=== PATIENT | male | born 1950 | race Caucasian/White ===

== ENCOUNTER 2017-06-19 05:05 | Inpatient (IN) | payer OTHER ==
[2017-06-13 15:33] VITALS: BMI 33.0
--- NOTE | 2017-06-13 16:19 | PAT Medication Instructions ---
Service Date Jun 13, 2017. Current Home Medication List Albuterol Hfa (Ventolin Hfa), 2 PUFFS INH QID PRN for RN Aspirin (Aspirin Ec), 81 MG PO QAM Carvedilol (Carvedilol), 12.5 MG PO BID Clopidogrel (Plavix), 75 MG PO QAM Fluticasone Propionate (Nasal) (Flonase Allergy Relief), 2 SPRAYS INTNAS PRN Insulin Aspart (Novolog Flexpen), 10 UNITS SQ AM/NOON Insulin Aspart (Novolog Flexpen), 14 UNITS INJ HS Insulin Detemir (Levemir), 44 UNITS INJ BID Lisinopril (Prinivil), 20 MG PO QAM Melatonin (Kp Melatonin), 1 TAB PO HS PRN for PRN Metformin Hcl (Glucophage Ext Rel), 1,000 MG PO BID Multiple Vitamins W/ Minerals (Centrum Silver Adult 50+), 1 TAB PO Q2D Rosuvastatin Calcium (Crestor), 5 MG PO HS Sertraline (Zoloft), 100 MG PO QAM Sertraline (Zoloft), 50 MG PO QPM [Albuterol Neb], 1 DOSE INH PRN Medication Instructions For Your Scheduled Surgery - Last dose 06/12/17: Clopidogrel (Plavix), 75 MG PO QAM - Hold the following medications 48 hours prior to surgery: Metformin Hcl (Glucophage Ext Rel), 1,000 MG PO BID - Hold the following medications the morning of surgery: Insulin Aspart (Novolog Flexpen), 10 UNITS SQ AM/NOON Lisinopril (Prinivil), 20 MG PO QAM Multiple Vitamins W/ Minerals (Centrum Silver Adult 50+), 1 TAB PO Q2D - Take the following medications the morning of surgery with a sip of water OTHERWISE NOTHING TO EAT OR DRINK AFTER MIDNIGHT: Aspirin (Aspirin Ec), 81 MG PO QAM Albuterol Hfa (Ventolin Hfa), 2 PUFFS INH QID PRN (use if needed; BRING TO HOSPITAL) Carvedilol (Carvedilol), 12.5 MG PO BID [Albuterol Neb], 1 DOSE INH PRN Sertraline (Zoloft), 100 MG PO QAM Fluticasone Propionate (Nasal) (Flonase Allergy Relief), 2 SPRAYS INTNAS PRN - For Insulin Dependent Diabetic patients: Test blood sugar A.M. of surgery. - If Blood Sugar GREATER THAN 150, take half of your regular dose of: Insulin Detemir (Levemir) - If Blood Sugar LESS THAN 150, do not take any: Insulin Detemir (Levemir ) - Take the following medications as scheduled the night before surgery: Insulin Detemir (Levemir), 44 UNITS INJ BID Insulin Aspart (Novolog Flexpen), 14 UNITS INJ HS Albuterol Hfa (Ventolin Hfa), 2 PUFFS INH QID PRN Carvedilol (Carvedilol), 12.5 MG PO BID [Albuterol Neb], 1 DOSE INH PRN Melatonin (Kp Melatonin), 1 TAB PO HS PRN for PRN Rosuvastatin Calcium (Crestor), 5 MG PO HS Sertraline (Zoloft), 50 MG PO QPM If you have any questions please call us at [phone] or [phone] or [phone]
--- NOTE | 2017-06-13 16:46 | DIAGNOSTIC IMAGING REPORT ---
CHEST 2 VIEWS ROUTINE HISTORY: 66 years-old Male PAT preoperative exam. No acute chest complaints COMPARISON: Chest radiograph 12/16/2013 TECHNIQUE: PA and lateral views of the chest FINDINGS: Cardiomediastinal and hilar silhouettes are within normal limits. Atherosclerosis of the aorta. No pneumothorax, pleural effusion, focal airspace consolidation or overt pulmonary edema. Minimal bibasilar atelectasis. Bones of the chest appear grossly intact. There are degenerative changes noted within the shoulders bilaterally and to lesser degree within the spine. Nodular opacity projecting over the lateral right lung base suggests nipple shadow. IMPRESSION: No acute cardiopulmonary process. The above report was generated using voice recognition software. It may contain grammatical, syntax or spelling errors. Electronically signed by: Demetrius Appiah M.D. 06/13/2017 4:45 PM Dictated Date/Time: 06/13/2017 4:44 PM
[2017-06-13 16:48] LABS: URINE APPEARANCE CLEAR (CLEAR); URINE BILIRUBIN NEG (NEG); URINE COLOR YELLOW; URINE NITRITE NEG (NEG); URINE PH 6.5 (4.5-7.5); URINE SPECIFIC GRAVITY 1.016 (1.000-1.030); UROBILINOGEN NEG (NEG); ZZUR CULT IF INDIC CLEAN CATCH NO
[2017-06-13 16:53] LABS: MANUAL MICROSCOPIC REQUIRED? NO; REVIEW REQ? NO
[2017-06-13 16:56] LABS: PARTIAL THROMBOPLASTIN RATIO 0.9; PROTHROMBIN TIME (PATIENT) 10.3 SECONDS (9.0-12.0)
--- NOTE | 2017-06-18 11:26 | HISTORY & PHYSICAL EXAMINATION ---
DATE OF ADMISSION: 06/19/2017 HISTORY OF PRESENT ILLNESS: The patient presents as a 66-year-old white male, 5 foot 11 inches, 245 pounds presenting for history and physical for surgery in the morning for a right total knee arthroplasty, presents after failing attempts at conservative management including physical therapy, anti-inflammatories, relative rest, activity modification and presents for right total knee arthroplasty. PAST MEDICAL HISTORY: Significant for hypertension, hypercholesterolemia, anxiety; diabetes, currently on insulin. FAMILY HISTORY: Otherwise unremarkable and noncontributory. SOCIAL HISTORY: The patient denies history of smoking, relates to 6 alcoholic drinks per week. No recreational drug use. PAST SURGICAL HISTORY: Significant for hip resurfacing, prostate surgery, foot surgery, and meniscus surgery of right knee. ALLERGIES: TETRACYCLINE, SULFA DRUGS, PENICILLIN. PAST MEDICAL HISTORY: Otherwise unremarkable. See history of present illness for pertinent positives. PHYSICAL EXAMINATION: GENERAL: A very pleasant 66-year-old white male with complaints of severe endstage DJD about his right knee. He has been nonresponsive to conservative therapy including physical therapy, anti-inflammatories, relative rest, activity modification and presents for total knee arthroplasty. HEENT: Otherwise unremarkable, atraumatic, normocephalic. HEART: Regular at 72 beats per minute. No murmurs are noted. LUNGS: Clear without rales, rhonchi, or wheezes noted. ABDOMEN: Soft, nontender, nondistended. Bowel sounds are present in all 4 quadrants. RECTAL: No rectal examination was performed. MUSCULOSKELETAL: Consistent with that of DJD of the right knee medial compartment, grade 3 and 4 chondrosis as verified via previous arthroscopy, patellofemoral arthritis with osteophytes. ASSESSMENT AND PLAN: The patient has failed attempts at conservative management. The patient presents for total knee arthroplasty.
[~2017-06-19] VITALS: Ht 180.3 cm; Wt 109.6 kg
[2017-06-19] VITALS (9 sets, daily range): BP systolic 120–164; BP diastolic 78–91; PULSE 54–69; TEMP 36.1–37; O2SAT 97–99; Ht 180.3 cm; Wt 109.6 kg
[~2017-06-19 05:05] MED LIST: ALBUTEROL NEB INH; ASPI81TA28 PO; CLOP1TAB15 PO; CRG125 PO; FLUT0.15 INTNAS; LISI20TA3 PO; LVMI INJ; MELA1TAB5 PO; METF1TAB53 PO; MULT-845 PO; NVLGI/PEN INJ; NVLGI/PEN SQ; ROSU5TAB PO; SERT-234 PO; SERT50TA PO; VNTHFA/IN INH
[2017-06-19] MEDS ORDERED: BUPIVACAINE LIPOSOME 266 MG, BUPIVACAINE/EPINEPHRINE INJ 50 ML, SODIUM CHLORIDE 0.9% PF... INFIL SCH ×3 (06:00)
[2017-06-19] MEDS ORDERED: GABAPENTIN 300 MG CAP PO SCH (06:00)
[2017-06-19] MEDS ORDERED: DEXAMETHASONE 4 MG TAB PO SCH (06:00)
[2017-06-19] MEDS ORDERED: LACTATED RINGER'S 1000ML IV SCH (06:00)
[2017-06-19] MEDS ORDERED: OXYCODONE HCL 10 MG TABCR (OXYCONTIN) PO SCH (06:00)
[2017-06-19] MEDS ORDERED: ACETAMINOPHEN 500 MG TAB PO SCH (06:00)
[2017-06-19] MEDS ORDERED: CLINDAMYCIN 600 MG/54 ML D5W 54 ML IV SCH (06:00)
[2017-06-19] MEDS ORDERED: LACTATED RINGER'S 1000ML 1,000 ML IV SCH (06:00)
[2017-06-19] MEDS ORDERED: METOCLOPRAMIDE HCL 10 MG TAB PO SCH (06:00)
[2017-06-19] MEDS ORDERED: FAMOTIDINE 20 MG TAB PO SCH (06:00)
[2017-06-19] MEDS ORDERED: LACTATED RINGER'S 1000ML 500 ML IV ONE (06:00)
[2017-06-19] MEDS ORDERED: ROPIVACAINE 5MG/ML 30 ML 150 MG, BUPIVACAINE 0.5% MPF INJ 30 ML, EpINEphrine HCL INJ 0.... INFIL SCH ×8 (06:00)
[2017-06-19] MEDS ORDERED: BUPIVACAINE 0.5 % 5 MG/1 ML PF 10ML VIAL ONE (06:31)
[2017-06-19] MEDS ORDERED: MIDAZOLAM HCL 1 MG/ML 2ML VIAL ONE ×2 (06:43→07:18)
[2017-06-19] MEDS ORDERED: PROPOFOL IV EMULSION 10 MG/ML 20 ML VIAL IV ONE ×2 (06:43→08:49)
[2017-06-19] MEDS ORDERED: LIDOCAINE HCL 2% 2 ML VIAL (20MG/ML) ONE (06:43)
[2017-06-19] MEDS ORDERED: POVIDONE-IODINE OP SOLN 30 ML BTL ONE (06:51)
[2017-06-19] MEDS ORDERED: ORTHO JOINT ANESTHETIC ONE (06:51)
[2017-06-19] MEDS ORDERED: BACITRACIN 50000 UNIT VIAL ONE (06:51)
--- NOTE | 2017-06-19 07:14 | History & Physical Bridge Note ---
H&P Re-Evaluation Bridge Note: I have examined the patient, reviewed the History & Physical and in the interval since the performance of the History & Physical I have noted the following changes of clinical significance: No changes noted
[2017-06-19] MEDS ORDERED: KETAMINE HCL INJ 50 MG/ML 10 ML VIAL ONE (07:33)
--- NOTE | 2017-06-19 08:35 | [facility] Operative Report ---
Operative Report Operative Date Jun 19, 2017. Pre-Operative Diagnosis Degenerative Joint Disease of the right knee medial compartment, grade 3 and 4 chondrosis, patellofemoral arthritis with osteophytes. Post-Operative Diagnosis Severe end-stage tricompartmental degenerative joint disease right knee nonresponsive to conservative therapy Procedure(s) Performed Right Total Knee Arthroplasty utilizing [employer] journey 2 nonlocked total knee arthroplasty size 5 femur 5 tibia 10 Sheila [address] Michael Manzano Gleason Gear Generator Surgeon(s) Mahendra Richardson PA-C Estimated Blood Loss 5mL Findings Severe end-stage tricompartmental degenerative joint disease right knee Nourse wants to conservative therapy subchondral cystic changes sclerosus osteophytes marginal osteophytes bone the bone changes Specimens Permanent: A. Right Knee Bone and Tissue Complication(s) None Disposition Recovery Room / PACU Indications Patient presents with severe end-stage tricompartmental joint disease nonresponsive to conservative therapy for total knee arthroplasty Description of Procedure After proper prepping and draping of the Right lower extremity anterior midline incision was made over the region of the extensor extensor mechanism after meticulous hemostasis was obtained and maintained in subcutaneous tissues a medial parapatellar incision was made The patella was subluxed lateralward the medial lateral gutter were cleaned from any hypertrophic synovitis and scar tissue of the distal femoral block was placed and the distal femoral osteotomy cut was made subsequently the chamfers anterior and posterior osteotomy cuts were made utilizing the 4-in-1 block the tibia was subsequently subluxed anteriorward medial and ateral meniscal remnants were excised in their entirety remnants of the anterior and posterior cruciate ligaments were excised in their entirety excellent exposure of the proximal tibia was obtained the tibial osteotomy guide was placed on the proximal tibial osteotomy cut was made once again the knee was irrigated with copious amounts of sterile saline solution the patella was subsequently everted lateralward thickened scar tissue around the patella was removed the patella was subsequently cut utilizing a freehand technique and was drilled prepared for final preparation and placement of patella socially flexion-extension gaps were checked and the equal and symmetric trials were placed to the appropriate femoral and tibial trials with poly-spacer being placed for equal flexion and extension gaps and full range of motion including extension to 0 and flexion to 140 the trial components after having been taken to recovery range of motion was subsequently removed meticulous hemostasis was obtained and maintained subsequently a knee block injection of joint cocktail including ropivacaine 0.5% 150 mg. Bupivacaine 0.5 % epinephrine 1-200,030 mL's toradol 30 mg dexamethasone 4 mg ketamine 10 mg clonidine 100 micrograms normal saline solution 30 mg was infiltrated into the soft tissues of the posterior knee medial lateral gutters and periosteal synovium special attention was paid to protect neurovascular structures at all times subsequently trial components having been removed the knee was irrigated with sterile saline solution. debris was removed the proximal tibia was subsequently prepared and was made ready for the placement of the tibial component tibial component was also cemented and tamped into position the femoral component was subsequently placed and cemented in the position the patellar component was subsequently cemented in position because hemostasis once again obtained and maintained wound having been thoroughly irrigated with debridement and debridement lavage was performed as well as a medial parapatellar incision closed with #1 Vicryl in interrupted fashion subcutaneous was closed with #2 Vicryl skin was closed with skin clips. PA-C was necessary for prepping and drapping as well as wound closure of deep fascia Sub cutaneous tissue and skin and was necessary for the case. A sterile compressive dressing was placed patient was taken to recovery in stable condition of report dictated by Jose Juan I attest to the content of the Intraoperative Record and any orders documented therein. Any exceptions are noted below. I attest to the content of the Intraoperative Record and any orders documented therein. Any exceptions are noted below.
[2017-06-19] MEDS ORDERED: FENTANYL CITRATE INJ 50 MCG/1 ML 2 ML VIAL IV PRN (08:45)
[2017-06-19] MEDS ORDERED: ATROPINE SULFATE 0.1 MG/ML 5ML SYR IV PRN (08:45)
[2017-06-19] MEDS ORDERED: EpHEDrine SULFATE INJ 50 MG/ML AMP IV PRN (08:45)
[2017-06-19] MEDS ORDERED: ONDANSETRON INJ 2 MG/ML 2 ML VIAL IV PRN ×2 (08:45→09:00)
[2017-06-19] MEDS ORDERED: EpHEDrine SULFATE 50MG/5ML SYR ONE (08:49)
[2017-06-19] MEDS: SODIUM CHLORIDE 0.9% 1000ML 1,000 ML IV SCH ×2 (08:56→19:32)
[2017-06-19] MEDS ORDERED: SOD PHOSPHATE/SOD BIPHOSPHATE ENEMA 132 ML BTL PR PRN (09:00)
[2017-06-19] MEDS ORDERED: ALUMINUM/MAGNESIUM/SIMETH (MAALOX MAX) 30 ML UDC PO PRN (09:00)
[2017-06-19] MEDS ORDERED: ALBUTEROL HFA 8 GM INHALER INH PRN (09:00)
[2017-06-19] MEDS ORDERED: NON-FORMULARY MEDICATION (Melatonin (Kp Melatonin) 1 TAB) PO PRN (09:00)
[2017-06-19] MEDS ORDERED: ZOLPIDEM TARTRATE 5 MG TAB PO PRN (09:00)
[2017-06-19] MEDS: DOCUSATE SODIUM 100 MG CAP PO SCH ×2 (09:00→21:47)
[2017-06-19] MEDS ORDERED: MoRPHine SULFATE 2 MG/ML CARP IV PRN (09:00)
[2017-06-19] MEDS ORDERED: MAGNESIUM HYDROXIDE SUSP 30 ML UDC PO PRN (09:00)
[2017-06-19] MEDS ORDERED: FLUTICASONE PROPIONATE NA SPR 16 GM BTL NAE PRN (09:00)
[2017-06-19] MEDS: SERTRALINE HCL 100 MG TAB PO SCH (09:00)
[2017-06-19] MEDS ORDERED: BISACODYL 10 MG SUPP PR PRN (09:00)
--- NOTE | 2017-06-19 09:22 | DIAGNOSTIC IMAGING REPORT ---
R KNEE 1 OR 2 VIEWS ROUTINE CLINICAL HISTORY: 67 years-old Male presenting with AP/LATERAL IN PACU RIGHT KNEE. TECHNIQUE: Frontal and crosstable lateral views of the right knee were obtained. COMPARISON: None. FINDINGS: Total right knee arthroplasty with patellar resurfacing. No malalignment. No acute fracture or hardware convocation. Expected intra-articular and soft tissue emphysema. Overlying surgical drain in place. Atherosclerosis. IMPRESSION: Expected postsurgical appearance status post total right knee arthroplasty with patellar resurfacing. Electronically signed by: Adebayo Galo M.D. 06/19/2017 9:21 AM Dictated Date/Time: 06/19/2017 9:20 AM
--- NOTE | 2017-06-19 09:49 | Anesthesiology Progress Note ---
Anesthesia Post Op Note Date & Time Jun 19, 2017 at 09:48 Vital Signs Pain Intensity: 0 Vital Signs Past 12 Hours Date Time Temp Pulse Resp B/P (MAP) Pulse Ox O2 Delivery O2 Flow Rate FiO2 06/19/17 09:40 58 14 135/76 99 Nasal Cannula 2 06/19/17 09:30 56 16 127/79 100 Nasal Cannula 2 06/19/17 09:20 52 16 115/68 100 Nasal Cannula 2 06/19/17 09:10 55 16 118/69 99 Nasal Cannula 2 06/19/17 09:00 53 17 104/62 100 Nasal Cannula 2 06/19/17 08:54 36.6 56 17 103/62 96 Nasal Cannula 2 06/19/17 05:49 37 54 18 120/78 97 Room Air Notes Mental Status: alert / awake / arousable, participated in evaluation Pt Amnestic to Procedure: Yes Nausea / Vomiting: adequately controlled Pain: adequately controlled Airway Patency, RR, SpO2: stable & adequate BP & HR: stable & adequate Hydration State: stable & adequate Neuraxial Anesthesia: was administered, sensory block is resolving Anesthetic Complications: no major complications apparent
[2017-06-19] MEDS ORDERED: MoRPHine SULFATE 10 MG/ML CARP/VIAL IV PRN (12:00)
[2017-06-19] MEDS: PANTOprazole SOD 40 MG TAB PO SCH (12:06)
[2017-06-19] MEDS: MULTIVITAMIN TAB PO SCH (12:06)
[2017-06-19] MEDS: CLOPIDOGREL BISULFATE 75 MG TAB PO SCH (12:07)
[2017-06-19] MEDS ORDERED: NURSING VERBAL MED ORDER ONE ×2 (12:45→22:15)
[2017-06-19] MEDS ORDERED: NovoLIN-R INSULIN PER UNIT CHARGE SQ ONE (12:45)
[2017-06-19] MEDS: CLINDAMYCIN IV 600 MG in DEXTROSE 5% 50ML 50 ML IV SCH ×2 (13:46→21:47)
[2017-06-19] MEDS: ACETAMINOPHEN 500 MG TAB PO SCH ×2 (13:46→22:15)
[2017-06-19] MEDS ORDERED: GLUCOSE 10 TABS/TUBE PO PRN (14:00)
[2017-06-19] MEDS ORDERED: GLUCOSE 40% GEL 15 GM TUBE PO PRN (14:00)
[2017-06-19] MEDS ORDERED: DEXTROSE 50% 50 ML SYR IV PRN (14:00)
[2017-06-19] MEDS ORDERED: GLUCAGON FOR INJ 1 MG VIAL SQ PRN (14:00)
--- NOTE | 2017-06-19 14:01 | Medical Consult ---
Consultation Date of Consultation: Jun 19, 2017. Attending Physician: Michael Manzano D.O. Reason for Consultation: Medical management History of Present Illness This is a 67 yo M with PMHX of DM II, HTN, HLD, CAD s/p 2 vessel disease with VAL to the RCA and R circumflex, and a bare metal stent in another portion of the RCA in 2005, anxiety, remote tobacco use where he quit 9 months ago ( previously smoked 10 cig x 40 years), and regular alcohol use with at least 1-3 drinks daily who presented for an elective right total knee arthroplasty by Dr. Manzano on 06/19/17. Pt notes he has no pain currently, and has sensation to light touch in his feet at this point. He lives at home with his and anticipates PT/OT afterwards. Past Medical/Surgical History Medical Problems: (1) Anxiety (2) CAD (coronary artery disease) (3) Depression (4) DM II (diabetes mellitus, type II), controlled (5) EtOH dependence (6) HLD (hyperlipidemia) (7) HTN (hypertension) Surgical Problems: (1) S/P angioplasty with stent Social History Smoking Status: Former Smoker Smokeless Tobacco Use: No Alcohol Use: heavy Drug Use: none Marital Status: Housing Status: lives with family Occupation Status: retired Allergies Coded Allergies: Adhesives (Verified Allergy, Unknown, REDNESS AND IRRITATION, 06/19/17) Cephalexin (Unverified Allergy, Unknown, UNKNOWN REACTION, 06/19/17) PER RECORDS Penicillins (Verified Allergy, Unknown, ? RASH, 06/19/17) Sulfa Antibiotics (Verified Allergy, Unknown, SWELLING AND SILVESTRE OF MOUTH , 06/19/17) Tetracycline (Verified Allergy, Unknown, RASH, 06/19/17) Uncoded Allergies: -MYCINS (Allergy, Unknown, RASH, 06/15/17) PER RECORDS Current Inpatient Medications Current Inpatient Medications Medications (Trade) Dose Ordered Sig/Eze Route Start Time Stop Time Status Last Admin Dose Admin Fentanyl Citrate (Fentanyl Inj) 50 mcg Q5M PRN IV 06/19/17 08:45 06/19/17 13:45 Ondansetron HCl (Zofran Inj) 4 mg ONE PRN IV 06/19/17 08:45 06/19/17 13:45 Ephedrine Sulfate (EpHEDrine SULFATE INJ) 5 mg Q5M PRN IV 06/19/17 08:45 06/19/17 13:45 Atropine Sulfate (Atropine Sulfate 0.1MG/Ml Inj) 0.5 mg Q1M PRN IV 06/19/17 08:45 06/19/17 13:45 Sodium Chloride 1,000 ml @ 100 mls/hr Q10H IV 06/19/17 08:56 06/20/17 08:55 Clindamycin Phosphate 600 mg/ Dextrose 54 ml @ 100 mls/hr Q8H IV 06/19/17 14:00 06/19/17 22:33 Oxycodone HCl (Roxicodone Immediate Rel Tab) 1 TABLET FOR PAIN RATING... Q4H PRN PO 06/19/17 09:00 07/03/17 08:59 Acetaminophen (Tylenol Tab) 1,000 mg Q8H PO 06/19/17 14:00 07/19/17 08:59 Magnesium Hydroxide (Milk Of Magnesia Susp) 30 ml Q6H PRN PO 06/19/17 09:00 07/19/17 08:59 Bisacodyl (Dulcolax Supp) 10 mg DAILY PRN AR 06/19/17 09:00 07/19/17 08:59 Sodium Biphosphate/ Sodium Phosphate (Fleet Enema) 132 ml DAILY PRN AR 06/19/17 09:00 07/19/17 08:59 Senna (Senokot Tab) 17.2 mg HS PO 06/19/17 21:00 07/19/17 20:59 Docusate Sodium (coLACE CAP) 100 mg BID PO 06/19/17 09:00 07/19/17 08:59 Diphenhydramine HCl (Benadryl Cap) 25 mg Q8H PRN PO 06/19/17 09:00 07/19/17 08:59 Al Hydrox/Mg Hydrox/Simethicone (Maalox Max Susp) 15 ml Q4H PRN PO 06/19/17 09:00 07/19/17 08:59 Zolpidem Tartrate (Ambien Tab) 5 mg HSZ PRN PO 06/19/17 09:00 07/19/17 08:59 Multivitamins (Multivitamin Tab) 1 tab QAM PO 06/19/17 09:00 07/19/17 08:59 06/19/17 12:06 1 TAB Ondansetron HCl (Zofran Inj) 4 mg Q6H PRN IV 06/19/17 09:00 07/19/17 08:59 Pantoprazole Sodium (Protonix Tab) 40 mg QAM PO 06/19/17 09:00 07/19/17 08:59 06/19/17 12:06 40 MG Tramadol HCl (Ultram Tab) 1 tablet for pain rating... Q4H PRN PO 06/19/17 09:00 07/19/17 08:59 Aspirin (Ecotrin Tab) 81 mg BID PO 06/19/17 21:00 07/19/17 20:59 Albuterol (Ventolin Hfa Inhaler) 2 puffs QID PRN INH 06/19/17 09:00 07/19/17 08:59 Carvedilol (Coreg Tab) 12.5 mg BID PO 06/19/17 21:00 07/19/17 20:59 Clopidogrel Bisulfate (plAVix TAB) 75 mg QAM PO 06/19/17 09:00 07/19/17 08:59 06/19/17 12:07 75 MG Fluticasone Propionate (Flonase Nasal Apollo) 2 sprays DAILY PRN ADALID 06/19/17 09:00 07/19/17 08:59 Rosuvastatin Calcium (Crestor Tab) 5 mg HS PO 06/19/17 21:00 07/19/17 20:59 Sertraline HCl (Zoloft Tab) 50 mg QPM PO 06/19/17 21:00 07/19/17 20:59 Sertraline HCl (Zoloft Tab) 100 mg QAM PO 06/19/17 09:00 07/19/17 08:59 Morphine Sulfate (MoRPHine SULFATE INJ) 2 mg Q4HWA PRN IV 06/19/17 09:00 07/03/17 08:59 Morphine Sulfate (MoRPHine SULFATE INJ) 4 mg Q4HWA PRN IV 06/19/17 12:00 07/03/17 11:59 Morphine Sulfate (MoRPHine SULFATE INJ) 6 mg Q4HWA PRN IV 06/19/17 12:00 07/03/17 11:59 Review of Systems Constitutional: No fever, No chills, No sweats, No weight loss, No fatigue Eyes: No worsening of vision, No redness ENT: No sore throat, No trouble swallowing Respiratory: No cough, No sputum, No wheezing, No shortness of breath Cardiovascular: No chest pain, No edema, No palpitations Abdomen: No pain, No nausea, No vomiting, No diarrhea, No constipation Musculoskeletal: No joint pain, No swelling, No calf pain Genitourinary - Male: No hematuria Neurologic: No paralysis, No weakness, No numbness/tingling Psychiatric: No depression symptoms, No anxiety Endocrine: No fatigue Integumentary: No rash, No itch Physical Exam Date Time Temp Pulse Resp B/P (MAP) Pulse Ox O2 Delivery O2 Flow Rate FiO2 06/19/17 12:15 36.9 69 18 148/91 (110) 98 Nasal Cannula 2.0 06/19/17 11:26 36.1 67 138/83 (101) 98 Nasal Cannula 2.0 06/19/17 10:40 36.3 58 19 134/80 (98) 98 Nasal Cannula 2.0 06/19/17 10:10 99 Nasal Cannula 2.0 06/19/17 10:10 99 Nasal Cannula 2.0 06/19/17 10:10 36.6 59 16 135/80 (98) 99 Nasal Cannula 2.0 06/19/17 10:00 60 14 115/78 99 Nasal Cannula 2 06/19/17 09:50 36.2 58 17 130/82 99 Nasal Cannula 2 06/19/17 09:40 58 14 135/76 99 Nasal Cannula 2 06/19/17 09:30 56 16 127/79 100 Nasal Cannula 2 06/19/17 09:20 52 16 115/68 100 Nasal Cannula 2 06/19/17 09:10 55 16 118/69 99 Nasal Cannula 2 06/19/17 09:00 53 17 104/62 100 Nasal Cannula 2 06/19/17 08:54 36.6 56 17 103/62 96 Nasal Cannula 2 06/19/17 05:49 37 54 18 120/78 97 Room Air General Appearance: WD/WN, no apparent distress, + obese Head: normocephalic, atraumatic Eyes: PERRL, EOMI ENT: hearing grossly normal, pharynx normal Neck: supple, no JVD Respiratory/Chest: chest non-tender, lungs clear, no respiratory distress, no accessory muscle use, + pertinent finding (on 2 L via NC) Cardiovascular: regular rate, rhythm, no murmur, normal peripheral pulses Abdomen/GI: normal bowel sounds, non tender, soft, + pertinent finding ( slightly distended) Back: normal inspection Extremities/Musculoskelatal: normal inspection, no calf tenderness, no pedal edema, + pertinent finding (R knee wrapped in LIZ, Hemovac drain in place, dressing is c/d/i, +ice pack on) Neurologic/Psych: alert, normal mood/affect, oriented x 3 Skin: normal color, warm/dry Laboratory Results Last 24 Hours Test 06/19/17 05:40 06/19/17 09:00 06/19/17 11:54 Bedside Glucose 184 mg/dl 163 mg/dl 257 mg/dl Assessment & Plan (1) S/P TKR (total knee replacement) Status: Acute Assessment & Plan: - Pain management, bowel regimen and DVT ppx per primary team - PT/OT on board (2) CAD (coronary artery disease) Status: Chronic (3) HTN (hypertension) (4) HLD (hyperlipidemia) Assessment & Plan: - S/p VAL to the RCA and circumflex, and bare metal stent as well in the RCA - Continue home medications including: plavix 75 mg daily, lisinopril 20 Qam (5) DM II (diabetes mellitus, type II), controlled Status: Chronic Assessment & Plan: - Continue levemir 44 U BID, starting tonight as long as pt tolerating diet. If pt not eating well or diminished appetite would reduce the dose in half. - Hold metformin 1000 mg BID tonight and likely can resume this tomorrow pending PRP. Cr. baseline appears to be around 1.2 - ISS with accuchecks ACHS - Check A1C with am labs (6) Depression Status: Chronic (7) Anxiety Status: Chronic Assessment & Plan: - Continue sertraline 100 mg QAm and 50 mg QPM (8) EtOH dependence Status: Chronic Assessment & Plan: - Reduction and cessation encouraged at bedside - Reports drinking 1-3 mixed cocktails or scotch on rocks about every day of the week. - Pt denies dependence or withdrawal symptoms. Problem Qualifiers (1) S/P TKR (total knee replacement): Laterality: right Qualified Codes: Z96.651 - Presence of right artificial knee joint (2) CAD (coronary artery disease): Coronary Disease-Associated Artery/Lesion type: [place] artery [place] vs. transplanted heart: [place] heart Associated angina: with stable angina Qualified Codes: I25.118 - Atherosclerotic heart disease of [place] coronary artery with other forms of angina pectoris (3) HTN (hypertension): Hypertension type: essential hypertension Qualified Codes: I10 - Essential ( primary) hypertension (4) HLD (hyperlipidemia): Hyperlipidemia type: pure hypercholesterolemia Qualified Codes: E78.00 - Pure hypercholesterolemia, unspecified (5) Depression: Depression Type: major depressive disorder Active/Remission status: in full remission
[2017-06-19] MEDS: OXYCODONE HCL IR 5 MG TAB (IMMEDIATE RELEASE) PO PRN ×2 (14:55→22:01)
[2017-06-19] MEDS ORDERED: INSULIN DETEMIR FLEXPEN/FLEX TOUCH 100 UNITS/ML 3ML SC ONE (17:45)
[2017-06-19] MEDS: INSULIN ASPART 100 UNITS/ML 3 ML PEN SC SCH ×2 (17:56→22:14)
[2017-06-19] MEDS: TRAMADOL HCL 50 MG TAB PO PRN ×2 (19:33→23:41)
[2017-06-19] MEDS: CARVEDILOL 12.5 MG TAB PO SCH (21:00)
[2017-06-19] MEDS ORDERED: INSULIN DETEMIR FLEXPEN/FLEX TOUCH 100 UNITS/ML 3ML SC SCH (21:00)
[2017-06-19] MEDS: ROSUVASTATIN CALCIUM 5 MG TAB PO SCH (21:46)
[2017-06-19] MEDS: SERTRALINE HCL 50 MG TAB PO SCH (21:47)
[2017-06-19] MEDS: SENNA 8.6 MG TAB PO SCH (21:47)
[2017-06-19] MEDS: ASPIRIN 81 MG ECTAB PO SCH (21:47)
[2017-06-20] VITALS (7 sets, daily range): BP systolic 125–156; BP diastolic 68–81; PULSE 57–103; TEMP 36.4–37; O2SAT 92–99
[2017-06-20] MEDS: SODIUM CHLORIDE 0.9% 1000ML 1,000 ML IV SCH (01:45)
[2017-06-20] MEDS: ACETAMINOPHEN 500 MG TAB PO SCH ×3 (05:41→21:15)
[2017-06-20 06:54] LABS: HEMATOCRIT 30.8 % (42-52); MEAN CELL VOLUME 84.6 fL (80-100); MEAN CORPUSCULAR HEMOGLOBIN 29.1 pg (25-34); MEAN CORPUSCULAR HGB CONC 34.4 g/dl (32-36); PLATELET COUNT 159 K/uL (130-400); RED BLOOD COUNT 3.64 M/uL (4.7-6.1); WHITE BLOOD COUNT 12.63 K/uL (4.8-10.8)
[2017-06-20 07:03] LABS: PROTHROMBIN TIME (PATIENT) 10.6 SECONDS (9.0-12.0)
[2017-06-20 07:29] LABS: CREATININE 1.16 mg/dl (0.60-1.40); POTASSIUM 4.4 mmol/L (3.5-5.1)
[2017-06-20] MEDS: OXYCODONE HCL IR 5 MG TAB (IMMEDIATE RELEASE) PO PRN ×3 (07:30→23:39)
[2017-06-20 08:02] LABS: ESTIMATED AVERAGE GLUCOSE 183 mg/dl; HA1C FLAG Normal (Normal)
--- NOTE | 2017-06-20 08:15 | Orthopedic Progress Note ---
Orthopedic Progress Note Date of Service Jun 20, 2017. Subjective Post OP Day: 1 Reports: feeling well, Denies: chest pain, SOB, nausea / vomiting, light headedness, calf pain Objective calves soft nontender, N/V intact, dressing C/D/I, A&O x3, toes mobile, hemovac drainage (1050/150 CC PER SHIFT) Date Time Temp Pulse Resp B/P (MAP) Pulse Ox O2 Delivery O2 Flow Rate FiO2 06/20/17 07:20 36.4 59 19 149/77 (101) 99 Room Air 06/20/17 03:07 36.4 57 16 156/81 (106) 97 Room Air 06/19/17 23:20 Room Air 06/19/17 22:46 36.4 56 17 153/82 (105) 98 Room Air 06/19/17 21:42 58 159/90 (113) 06/19/17 18:42 36.7 63 20 164/83 (110) 98 Nasal Cannula 2.0 06/19/17 15:45 36.5 62 18 161/82 (108) 98 Nasal Cannula 2.0 06/19/17 15:20 Room Air 06/19/17 12:15 36.9 69 18 148/91 (110) 98 Nasal Cannula 2.0 06/19/17 11:26 36.1 67 138/83 (101) 98 Nasal Cannula 2.0 06/19/17 10:40 36.3 58 19 134/80 (98) 98 Nasal Cannula 2.0 06/19/17 10:10 99 Nasal Cannula 2.0 06/19/17 10:10 99 Nasal Cannula 2.0 06/19/17 10:10 36.6 59 16 135/80 (98) 99 Nasal Cannula 2.0 06/19/17 10:00 60 14 115/78 99 Nasal Cannula 2 06/19/17 09:50 36.2 58 17 130/82 99 Nasal Cannula 2 06/19/17 09:40 58 14 135/76 99 Nasal Cannula 2 06/19/17 09:30 56 16 127/79 100 Nasal Cannula 2 06/19/17 09:20 52 16 115/68 100 Nasal Cannula 2 06/19/17 09:10 55 16 118/69 99 Nasal Cannula 2 06/19/17 09:00 53 17 104/62 100 Nasal Cannula 2 06/19/17 08:54 36.6 56 17 103/62 96 Nasal Cannula 2 Laboratory Results 24 Hours: Test 06/20/17 06:09 Hematocrit 30.8 % Hemoglobin 10.6 g/dL Prothromb Time International Ratio 1.0 Prothrombin Time 10.6 SECONDS Assessment & Plan Assessment: POD#1 SP RIGHT TKA DM- HYPERGLYCEMIA Plan: PT/OT DVT PROPH- ASA 81MG PAIN MANAGEMENT- [place], TYLENOL MEDICAL MANAGEMENT DC PLANNING- HOME WITH RAMÓN SUNDAY.
[2017-06-20] MEDS: DOCUSATE SODIUM 100 MG CAP PO SCH ×2 (08:46→21:13)
[2017-06-20] MEDS: ASPIRIN 81 MG ECTAB PO SCH ×2 (08:46→21:13)
[2017-06-20] MEDS: CARVEDILOL 12.5 MG TAB PO SCH ×2 (08:49→21:17)
[2017-06-20] MEDS: MULTIVITAMIN TAB PO SCH (08:49)
[2017-06-20] MEDS: PANTOprazole SOD 40 MG TAB PO SCH (08:50)
[2017-06-20] MEDS: CLOPIDOGREL BISULFATE 75 MG TAB PO SCH (08:50)
[2017-06-20] MEDS: LISINOPRIL 20 MG TAB PO SCH (08:50)
[2017-06-20] MEDS: SERTRALINE HCL 100 MG TAB PO SCH (08:50)
[2017-06-20] MEDS: INSULIN ASPART 100 UNITS/ML 3 ML PEN SC SCH ×4 (08:59→21:12)
[2017-06-20] MEDS: INSULIN DETEMIR FLEXPEN/FLEX TOUCH 100 UNITS/ML 3ML SC SCH ×2 (09:01→21:12)
[2017-06-20] MEDS: TRAMADOL HCL 50 MG TAB PO PRN (11:28)
--- NOTE | 2017-06-20 12:56 | Anesthesiology Progress Note ---
Anesthesia Post Op Note Date & Time Jun 20, 2017 at 12:55 Vital Signs Pain Intensity: 8.0 Vital Signs Past 12 Hours Date Time Temp Pulse Resp B/P (MAP) Pulse Ox O2 Delivery O2 Flow Rate FiO2 06/20/17 12:36 37.0 70 18 146/71 (96) 93 Room Air 06/20/17 08:47 58 125/74 (91) 06/20/17 07:20 36.4 59 19 149/77 (101) 99 Room Air 06/20/17 07:20 Room Air 06/20/17 03:07 36.4 57 16 156/81 (106) 97 Room Air Notes Mental Status: alert / awake / arousable, participated in evaluation Pt Amnestic to Procedure: Yes Nausea / Vomiting: adequately controlled Pain: adequately controlled Airway Patency, RR, SpO2: stable & adequate BP & HR: stable & adequate Hydration State: stable & adequate Neuraxial Anesthesia: sensory block resolved Anesthetic Complications: no major complications apparent
[2017-06-20] MEDS: MoRPHine SULFATE 4 MG/ML 1 ML CARP\\VIAL IV PRN ×2 (15:25→19:25)
--- NOTE | 2017-06-20 17:40 | Progress Note ---
Subjective Date of Service: Jun 20, 2017. Subjective Pt evaluation today including: conversation w/ patient, physical exam, chart review, lab review, review of studies, review of inpatient medication list comfortably in bed No complaints Had physical therapy today Review of Systems Constitutional: + fever, No see HPI, No chills, No sweats, No weight loss, No weakness, No fatigue, No problem reported ENT: No see HPI, No hearing loss, No unusual epistaxis, No nasal symptoms, No sore throat, No tinnitus, No dental problems, No trouble swallowing, No problem reported Respiratory: No see HPI, No cough, No sputum, No wheezing, No shortness of breath, No dyspnea on exertion, No dyspnea at rest, No hemoptysis, No problem reported Abdomen: No see HPI, No pain, No nausea, No vomiting, No diarrhea, No constipation, No GI bleeding, No problem reported Musculoskeletal: + joint pain, No see HPI, No muscle pain, No swelling, No calf pain, No problem reported Male : No see HPI, No dysuria, No urinary frequency, No incontinence, No nocturia more than once/night, No slowing stream, No hematuria, No sexual dysfunction, No problem reported Neurologic: No see HPI, No memory loss, No paralysis, No weakness, No numbness/ tingling, No vertigo, No balance problems, No problem reported Heme: No see HPI, No abnormal bleeding/bruising, No clotting problems, No swollen lymph nodes, No night sweats, No problem reported Skin: No see HPI, No rash, No itch, No new/changing skin lesions, No color change, No bleeding, No problem reported Objective Vital Signs Date Time Temp Pulse Resp B/P (MAP) Pulse Ox O2 Delivery O2 Flow Rate FiO2 06/20/17 16:12 36.4 58 18 131/69 (89) 99 Room Air 06/20/17 12:36 37.0 70 18 146/71 (96) 93 Room Air 06/20/17 08:47 58 125/74 (91) 06/20/17 07:20 36.4 59 19 149/77 (101) 99 Room Air 06/20/17 07:20 Room Air 06/20/17 03:07 36.4 57 16 156/81 (106) 97 Room Air 06/19/17 23:20 Room Air 06/19/17 22:46 36.4 56 17 153/82 (105) 98 Room Air 06/19/17 21:42 58 159/90 (113) 06/19/17 18:42 36.7 63 20 164/83 (110) 98 Nasal Cannula 2.0 Physical Exam General Appearance: WD/WN, no apparent distress Eyes: normal inspection, PERRL, EOMI, sclerae normal Neck: supple, no adenopathy, thyroid normal, no JVD Respiratory/Chest: chest non-tender, lungs clear, normal breath sounds, no respiratory distress Cardiovascular: regular rate, rhythm, no edema, no gallop, no JVD Abdomen: normal bowel sounds, non tender, soft, no organomegaly Neurologic/Psychiatric: no motor/sensory deficits, alert, normal mood/affect, oriented x 3 Skin: normal color, warm/dry, no rash Lymphatic: no adenopathy Laboratory Results Last 24 Hours Test 06/19/17 17:40 06/19/17 20:49 06/19/17 21:53 06/19/17 23:25 Bedside Glucose 381 mg/dl 361 mg/dl 335 mg/dl 297 mg/dl Test 06/20/17 03:12 06/20/17 06:09 06/20/17 08:18 06/20/17 11:59 Bedside Glucose 240 mg/dl 235 mg/dl 262 mg/dl White Blood Count 12.63 K/uL Red Blood Count 3.64 M/uL Hemoglobin 10.6 g/dL Hematocrit 30.8 % Mean Corpuscular Volume 84.6 fL Mean Corpuscular Hemoglobin 29.1 pg Mean Corpuscular Hemoglobin Concent 34.4 g/dl RDW Standard Deviation 40.7 fL RDW Coefficient of Variation 13.5 % Platelet Count 159 K/uL Mean Platelet Volume 10.0 fL Prothrombin Time 10.6 SECONDS Prothromb Time International Ratio 1.0 Sodium Level 133 mmol/L Potassium Level 4.4 mmol/L Chloride Level 102 mmol/L Carbon Dioxide Level 23 mmol/L Anion Gap 8.0 mmol/L Blood Urea Nitrogen 21 mg/dl Creatinine 1.16 mg/dl Est Creatinine Clear Calc Drug Dose 79.9 ml/min Estimated GFR () 76.2 Estimated GFR (Non- 65.7 BUN/Creatinine Ratio 18.0 Random Glucose 220 mg/dl Estimated Average Glucose 183 mg/dl Hemoglobin A1c 8.0 % Calcium Level 8.0 mg/dl Test 06/20/17 17:16 Bedside Glucose 204 mg/dl Assessment and Plan (1) S/P TKR (total knee replacement) (2) CAD (coronary artery disease) (3) HTN (hypertension) (4) HLD (hyperlipidemia) (5) DM II (diabetes mellitus, type II), controlled (6) Depression (7) Anxiety (8) EtOH dependence s/p right TKA: pain is controlled encouraged IS use, monitor for acute blood loss DVT prophylaxis, d/c planning per orthopedic surgery - DM type II: continue Levemir 44 units BID as long as he is tolerating diet Novolog SS can resume Metformin on DC - HTN, h/o CAD with stenting, dyslipidemia continue home medications of Coreg, Lisinopril continue aspirin and Plavix Problem Qualifiers (1) S/P TKR (total knee replacement): Laterality: right Qualified Codes: Z96.651 - Presence of right artificial knee joint (2) CAD (coronary artery disease): Coronary Disease-Associated Artery/Lesion type: [place] artery [place] vs. transplanted heart: [place] heart Associated angina: with stable angina Qualified Codes: I25.118 - Atherosclerotic heart disease of [place] coronary artery with other forms of angina pectoris (3) HTN (hypertension): Hypertension type: essential hypertension Qualified Codes: I10 - Essential ( primary) hypertension (4) HLD (hyperlipidemia): Hyperlipidemia type: pure hypercholesterolemia Qualified Codes: E78.00 - Pure hypercholesterolemia, unspecified (5) Depression: Depression Type: major depressive disorder Active/Remission status: in full remission
[2017-06-20] MEDS: ROSUVASTATIN CALCIUM 5 MG TAB PO SCH (21:13)
[2017-06-20] MEDS: SERTRALINE HCL 50 MG TAB PO SCH (21:13)
[2017-06-20] MEDS: SENNA 8.6 MG TAB PO SCH (21:14)
[2017-06-21] MEDS: ACETAMINOPHEN 500 MG TAB PO SCH (05:16)
[2017-06-21] MEDS: OXYCODONE HCL IR 5 MG TAB (IMMEDIATE RELEASE) PO PRN ×2 (05:34→11:05)
[2017-06-21 06:55] VITALS: BP 118/72; PULSE 55; TEMP 36.6; O2SAT 99
[2017-06-21 07:40] VITALS: PULSE 66
[2017-06-21] MEDS: TRAMADOL HCL 50 MG TAB PO PRN (07:42)
[2017-06-21] MEDS: PANTOprazole SOD 40 MG TAB PO SCH (07:43)
[2017-06-21] MEDS: ASPIRIN 81 MG ECTAB PO SCH (07:43)
[2017-06-21] MEDS: MULTIVITAMIN TAB PO SCH (07:43)
[2017-06-21] MEDS: LISINOPRIL 20 MG TAB PO SCH (07:43)
[2017-06-21] MEDS: DOCUSATE SODIUM 100 MG CAP PO SCH (07:43)
[2017-06-21] MEDS: CLOPIDOGREL BISULFATE 75 MG TAB PO SCH (07:43)
[2017-06-21] MEDS: CARVEDILOL 12.5 MG TAB PO SCH (07:44)
[2017-06-21] MEDS: SERTRALINE HCL 100 MG TAB PO SCH (07:45)
[2017-06-21] MEDS: INSULIN ASPART 100 UNITS/ML 3 ML PEN SC SCH (07:52)
[2017-06-21] MEDS: INSULIN DETEMIR FLEXPEN/FLEX TOUCH 100 UNITS/ML 3ML SC SCH (07:53)
--- NOTE | 2017-06-21 08:14 | Orthopedic Progress Note ---
Orthopedic Progress Note Date of Service Jun 21, 2017. Subjective Post OP Day: 2 Reports: feeling well, Denies: chest pain, SOB, nausea / vomiting, light headedness, calf pain Objective calves soft nontender, N/V intact, capillary refill less than 2 sec., incision C /D/I, A&O x3, toes mobile Date Time Temp Pulse Resp B/P (MAP) Pulse Ox O2 Delivery O2 Flow Rate FiO2 06/21/17 06:55 36.6 55 16 118/72 (87) 99 Room Air 06/20/17 23:40 Room Air 06/20/17 23:38 36.8 59 16 125/68 (87) 98 Room Air 06/20/17 16:12 36.4 58 18 131/69 (89) 99 Room Air 06/20/17 15:15 Room Air 06/20/17 12:36 37.0 70 18 146/71 (96) 93 Room Air 06/20/17 08:47 58 125/74 (91) Assessment & Plan Assessment: POD#2 SP RIGHT TKA DM- HYPERGLYCEMIA Plan: PT/OT DVT PROPH- ASA 81MG PAIN MANAGEMENT- [place], TYLENOL MEDICAL MANAGEMENT DC PLANNING- HOME WITH [facility] SUNDAY.
[2017-06-21] MEDS ORDERED: ASPI81TA28 PO (08:16)
[2017-06-21] MEDS ORDERED: ONDA8TAB6 PO (08:16)
[2017-06-21] MEDS ORDERED: RXC5 PO (08:16)
[2017-06-21] MEDS ORDERED: ULT50X PO (08:16)
[2017-06-21] MEDS ORDERED: SENN-61 PO (08:16)
[2017-06-21] MEDS ORDERED: ACET-24 PO (08:16)
--- NOTE | 2017-06-21 08:20 | Discharge Instructions ---
Discharge Instructions Date of Service Jun 21, 2017. Admission Reason for Admission: Right Knee Osteoarthritis Discharge Discharge Diagnosis / Problem: sp right TKA Discharge Goals Goal(s): Decrease discomfort, Improve function, Increase independence Activity Recommendations Activity Limitations: per Instructions/Follow-up section . Instructions / Follow-Up Instructions / Follow-Up ACTIVITY RECOMMENDATIONS: SELF CARE INSTRUCTIONS AFTER TOTAL KNEE REPLACEMENT A. You may need to continue a physical therapy program after discharge from the hospital. There are several options available to you. Your doctor will assist you in selecting the best one for you. 1. An out-patient facility 2 to 3 times a week for therapy or home therapy. 2. Continue working on all exercises taught to you in the hospital. Your goals should be to increase bending of your knee to 90 degrees and beyond and to fully straighten your knee. B. You may progress at your own pace from walking with a walker or crutches to a cane; then to no assistive devices. C. Make walking a part of your daily routine. Be up as much as comfortable with rest periods throughout the day. Rest with leg elevation is very important. Use the ice wrap frequently for the first 3-4 weeks. D. There are no restrictions on activities. You may ride in a car, shop, participate in mottler operator and all social activities. E. Wear the long elastic stockings (MANUEL hose) 20 hours a day for 2 weeks after surgery. They can be removed several times a day for laundering and for a bath. F. You may shower, no tub baths until cleared by your doctor. SPECIAL CARE INSTRUCTIONS: VERY IMPORTANT TO READ AND REVIEW A. There are a few signs you need to watch for after you are home. Call [facility] if you notice any of the followin. Increased severe knee pain. Some pain is expected especially when you exercise. 2. Increased swelling in your leg or knee; pain or swelling of the calf muscle in either lower leg. 3. Any fluid drainage from the incision. 4. Shortness of breath or chest pain. B. Please call [facility] at if you have any concerns or questions about your operation or recovery. The doctor or his nurse will return your call promptly. C. You must take antibiotics before dental work, bladder, bowel or other surgery. Your doctor will provide you with a permanent care to carry describing this precaution. IMPORTANT: * REMEMBER TO TAKE ASPIRIN, 81 MG, TWICE DAILY FOR 4 WEEKS UNLESS OTHERWISE DIRECTED. THIS IS YOUR BLOOD THINNER. * HIGH RISK PATIENTS MAY BE PRESCRIBED A STRONGER BLOOD THINNER. THIS WILL BE PROVIDED AT DISCHARGE. * CALL IF INCREASED PAIN, REDNESS, DRAINAGE OR FEVER GREATER THAT 101. * WEAR MANUEL HOSE 20 HOURS PER DAY FOR 2 WEEKS. * DERMABOND Prineo- This is a mesh tape dressing that is covered with glue. It should remain in place until the incision is properly healed, usually 10-14 days. This dressing is designed to naturally slough off. You may trim the excess mesh tape as it peels off. Incision may be briefly wet in a shower. Dry immediately by blotting with a clean, dry towel. Do not bath or swim until instructed by your doctor. Do not scratch, rub, or pick at the dressing. Do not apply any topical ointments or lotions until dressing is completely removed and/or instructed by your doctor. There may be a small piece of suture material at one end of your incision. Do not pull or trim this. If it is bothersome or catching on clothing, you may cover it with a band-aid. FOLLOW UP VISIT: If appointment is not already scheduled: Please call [facility] to make a follow-up appointment for 2 weeks after your surgery at . Current Hospital Diet Patient's current hospital diet: Diabetes Type 2 Diet Discharge Diet Recommended Diet: Regular Diet Procedures Procedures Performed: Right Total Knee Arthroplasty utilizing Pool & Nephew journey 2 nonlocked total knee arthroplasty size 5 femur 5 tibia 10 Sheila 35 oval patella Pending Studies Studies pending at discharge: no Laboratory Results Hemoglobin A1c Test 06/20/17 06:09 Range/Units Estimated Average Glucose 183 mg/dl Hemoglobin A1c 8.0 H 4.5-5.6 % Medical Emergencies . Who to Call and When: Medical Emergencies: If at any time you feel your situation is an emergency, please call 911 immediately. . Non-Emergent Contact Non-Emergency issues call your: Surgeon . "Provider Documentation" section prepared by Marilee Guevara. . VTE Core Measure Inpt VTE Proph given/why not?: Other Anticoagulation, T.E.D. Stockings, SCD's
[2017-06-21 08:54] VITALS: BP 106/65
[2017-06-21 09:26] VITALS: BP 118/72; PULSE 66; TEMP 36.6; O2SAT 99
--- NOTE | 2017-06-21 11:10 | Discharge Summary ---
Orthopedic Discharge Summary Admission Date/Reason Jun 19, 2017 at 07:00 Right Knee Osteoarthritis. Discharge Date/Disposition Jun 21, 2017 Home with services Diagnosis Principal Diagnosis: right knee osteoarthritis Procedure(s) Performed Right Total Knee Arthroplasty utilizing Pool & Nephew journey 2 nonlocked total knee arthroplasty size 5 femur 5 tibia 10 Sheila 35 oval patella Consultations [facility] [place]- medical management Medication Reconciliation New Medications: Ondansetron Hcl (Zofran) 8 Mg Tab 8 MG PO Q8 PRN for Nausea, #20 TAB Acetaminophen (Sb Non-Aspirin Extra Stre) 500 Mg Tab 1000 MG PO Q8H for 30 Days, #180 TAB Oxycodone HCl (Oxycodone HCl) 5 Mg Tab 5-10 MG PO Q4H PRN for Pain, #60 TAB Senna (Senokot) 8.6 Mg Tab 17.2 MG PO HS for 14 Days, TAB Tramadol HCl (Tramadol HCl) 50 Mg Tab 50-100 MG PO Q4H PRN for Pain, #60 TAB Changed Medications: Aspirin (Aspirin Ec) 81 Mg Tab 81 MG PO BID for 30 Days (Changed from: QAM) Continued Medications: Albuterol Hfa (Ventolin Hfa) 200 Puffs/42779 Mcg Aers 2 PUFFS INH QID PRN for RN, #1 INHALER Carvedilol (Carvedilol) 12.5 Mg Tab 12.5 MG PO BID Clopidogrel (Plavix) 75 Mg Tab 75 MG PO QAM, TAB Fluticasone Propionate (Nasal) (Flonase Allergy Relief) 50 Mcg/Act Spr 2 SPRAYS INTNAS PRN Insulin Aspart (Novolog Flexpen) 100 Units/Ml Inj 10 UNITS SQ AM/NOON Insulin Aspart (Novolog Flexpen) 100 Units/Ml Inj 14 UNITS INJ HS Insulin Detemir (Levemir) 100 Units/Ml Inj 44 UNITS INJ BID Lisinopril (Prinivil) 20 Mg Tab 20 MG PO QAM, TAB Melatonin (Kp Melatonin) 3 Mg Tab 1 TAB PO HS PRN for PRN for 30 Days, #30 TAB Metformin Hcl (Glucophage Ext Rel) 1,000 Mg Tab 1000 MG PO BID, TAB Multiple Vitamins W/ Minerals (Centrum Silver Adult 50+) 1 Tab Tab 1 TAB PO Q2D AM Rosuvastatin Calcium (Crestor) 5 Mg Tab 5 MG PO HS, TAB Sertraline (Zoloft) 100 Mg Tab 100 MG PO QAM, TAB Sertraline (Zoloft) 50 Mg Tab 50 MG PO QPM, TAB Admission Physical Exam As per Admitting History & Physical. Hospital Course Patient was a same day admission after undergoing a successful right TKA. He tolerated the procedure well. Post-operatively, his activity was progressed and well tolerated. Please refer to daily progress notes and PT notes for complete details. After exam on 06/21/17, patient felt to be stable for discharge home with HHPT. Patient will f/u in the office in 2 weeks for further evaluation including x-rays and incision check, sooner if having any issues or concerns. Below are pertinent labs/studies during their hospital stay: Last Resulted CBC 06/20/17 06:09 Last Resulted BMP 06/20/17 06:09 Last Vital Signs Documentation Date Time Temp Pulse Resp B/P (MAP) Pulse Ox O2 Delivery O2 Flow Rate FiO2 06/21/17 09:26 36.6 66 16 99 Room Air 06/21/17 06:55 118/72 (87) 06/19/17 18:42 2.0 Discharge Instructions ACTIVITY RECOMMENDATIONS: SELF CARE INSTRUCTIONS AFTER TOTAL KNEE REPLACEMENT A. You may need to continue a physical therapy program after discharge from the hospital. There are several options available to you. Your doctor will assist you in selecting the best one for you. 1. An out-patient facility 2 to 3 times a week for therapy or home therapy. 2. Continue working on all exercises taught to you in the hospital. Your goals should be to increase bending of your knee to 90 degrees and beyond and to fully straighten your knee. B. You may progress at your own pace from walking with a walker or crutches to a cane; then to no assistive devices. C. Make walking a part of your daily routine. Be up as much as comfortable with rest periods throughout the day. Rest with leg elevation is very important. Use the ice wrap frequently for the first 3-4 weeks. D. There are no restrictions on activities. You may ride in a car, shop, participate in independent consultant and all social activities. E. Wear the long elastic stockings (MANUEL hose) 20 hours a day for 2 weeks after surgery. They can be removed several times a day for laundering and for a bath. F. You may shower, no tub baths until cleared by your doctor. SPECIAL CARE INSTRUCTIONS: VERY IMPORTANT TO READ AND REVIEW A. There are a few signs you need to watch for after you are home. Call [facility] if you notice any of the followin. Increased severe knee pain. Some pain is expected especially when you exercise. 2. Increased swelling in your leg or knee; pain or swelling of the calf muscle in either lower leg. 3. Any fluid drainage from the incision. 4. Shortness of breath or chest pain. B. Please call [facility] at if you have any concerns or questions about your operation or recovery. The doctor or his nurse will return your call promptly. C. You must take antibiotics before dental work, bladder, bowel or other surgery. Your doctor will provide you with a permanent care to carry describing this precaution. IMPORTANT: * REMEMBER TO TAKE ASPIRIN, 81 MG, TWICE DAILY FOR 4 WEEKS UNLESS OTHERWISE DIRECTED. THIS IS YOUR BLOOD THINNER. * HIGH RISK PATIENTS MAY BE PRESCRIBED A STRONGER BLOOD THINNER. THIS WILL BE PROVIDED AT DISCHARGE. * CALL IF INCREASED PAIN, REDNESS, DRAINAGE OR FEVER GREATER THAT 101. * WEAR MANUEL HOSE 20 HOURS PER DAY FOR 2 WEEKS. * DERMABOND Prineo- This is a mesh tape dressing that is covered with glue. It should remain in place until the incision is properly healed, usually 10-14 days. This dressing is designed to naturally slough off. You may trim the excess mesh tape as it peels off. Incision may be briefly wet in a shower. Dry immediately by blotting with a clean, dry towel. Do not bath or swim until instructed by your doctor. Do not scratch, rub, or pick at the dressing. Do not apply any topical ointments or lotions until dressing is completely removed and/or instructed by your doctor. There may be a small piece of suture material at one end of your incision. Do not pull or trim this. If it is bothersome or catching on clothing, you may cover it with a band-aid. FOLLOW UP VISIT: If appointment is not already scheduled: Please call [facility] to make a follow-up appointment for 2 weeks after your surgery at .
--- NOTE | 2017-06-21 11:42 | Hospitalist Progress Note ---
Hospitalist Progress Note Date of Service Jun 21, 2017. (Ruthann Wright ., PA-C) Subjective Pt evaluation today including: conversation w/ patient, conversation w/ family ( at bedside ), physical exam, lab review, review of inpatient medication list Voiding: no voiding problems Patient sitting up in bed, ready for discharge. Eating and drinking OK. +flatus postop, no BM. No abdominal discomfort. Instructed patient to take MiraLAX +/- stool softener at home until BM. Pain is well controlled. Patient denies any fever, chills, sweats, lightheadedness, dizziness, vision changes, CP, palpitations, edema, SOB, wheezing, cough, abdominal pain, nausea, vomiting, diarrhea, urinary symptoms, melena, numbness/tingling, weakness, muscle/joint pain, anxiety/depression, active bleeding, or new skin discoloration/changes. (Ruthann Wright ., PA-C) Medications Current Inpatient Medications Medications (Trade) Dose Ordered Sig/Eze Route Start Time Stop Time Status Last Admin Dose Admin Oxycodone HCl (Roxicodone Immediate Rel Tab) 1 TABLET FOR PAIN RATING... Q4H PRN PO 06/19/17 09:00 07/03/17 08:59 06/21/17 11:05 10 MG Acetaminophen (Tylenol Tab) 1,000 mg Q8H PO 06/19/17 14:00 07/19/17 08:59 06/21/17 05:16 1,000 MG Magnesium Hydroxide (Milk Of Magnesia Susp) 30 ml Q6H PRN PO 06/19/17 09:00 07/19/17 08:59 Bisacodyl (Dulcolax Supp) 10 mg DAILY PRN OK 06/19/17 09:00 07/19/17 08:59 Sodium Biphosphate/ Sodium Phosphate (Fleet Enema) 132 ml DAILY PRN OK 06/19/17 09:00 07/19/17 08:59 Senna (Senokot Tab) 17.2 mg HS PO 06/19/17 21:00 07/19/17 20:59 06/20/17 21:14 17.2 MG Docusate Sodium (coLACE CAP) 100 mg BID PO 06/19/17 09:00 07/19/17 08:59 06/21/17 07:43 100 MG Diphenhydramine HCl (Benadryl Cap) 25 mg Q8H PRN PO 06/19/17 09:00 07/19/17 08:59 Al Hydrox/Mg Hydrox/Simethicone (Maalox Max Susp) 15 ml Q4H PRN PO 06/19/17 09:00 07/19/17 08:59 Zolpidem Tartrate (Ambien Tab) 5 mg HSZ PRN PO 06/19/17 09:00 07/19/17 08:59 Multivitamins (Multivitamin Tab) 1 tab QAM PO 06/19/17 09:00 07/19/17 08:59 06/21/17 07:43 1 TAB Ondansetron HCl (Zofran Inj) 4 mg Q6H PRN IV 06/19/17 09:00 07/19/17 08:59 Pantoprazole Sodium (Protonix Tab) 40 mg QAM PO 06/19/17 09:00 07/19/17 08:59 06/21/17 07:43 40 MG Tramadol HCl (Ultram Tab) 1 tablet for pain rating... Q4H PRN PO 06/19/17 09:00 07/19/17 08:59 06/21/17 07:42 100 MG Aspirin (Ecotrin Tab) 81 mg BID PO 06/19/17 21:00 07/19/17 20:59 06/21/17 07:43 81 MG Albuterol (Ventolin Hfa Inhaler) 2 puffs QID PRN INH 06/19/17 09:00 07/19/17 08:59 Carvedilol (Coreg Tab) 12.5 mg BID PO 06/19/17 21:00 07/19/17 20:59 06/21/17 07:44 12.5 MG Clopidogrel Bisulfate (plAVix TAB) 75 mg QAM PO 06/19/17 09:00 07/19/17 08:59 06/21/17 07:43 75 MG Fluticasone Propionate (Flonase Nasal Alfred) 2 sprays DAILY PRN ADALID 06/19/17 09:00 07/19/17 08:59 Rosuvastatin Calcium (Crestor Tab) 5 mg HS PO 06/19/17 21:00 07/19/17 20:59 06/20/17 21:13 5 MG Sertraline HCl (Zoloft Tab) 50 mg QPM PO 06/19/17 21:00 07/19/17 20:59 06/20/17 21:13 50 MG Sertraline HCl (Zoloft Tab) 100 mg QAM PO 06/19/17 09:00 07/19/17 08:59 06/21/17 07:45 100 MG Morphine Sulfate (MoRPHine SULFATE INJ) 2 mg Q4HWA PRN IV 06/19/17 09:00 07/03/17 08:59 Morphine Sulfate (MoRPHine SULFATE INJ) 4 mg Q4HWA PRN IV 06/19/17 12:00 07/03/17 11:59 06/20/17 19:25 4 MG Morphine Sulfate (MoRPHine SULFATE INJ) 6 mg Q4HWA PRN IV 06/19/17 12:00 07/03/17 11:59 Lisinopril (Zestril Tab) 20 mg QAM PO 06/20/17 09:00 07/20/17 08:59 06/21/17 07:43 20 MG Insulin Aspart (novoLOG ASPART) SLIDING SCALE If C... ACHS SC 06/19/17 17:15 07/19/17 17:14 06/21/17 07:52 2 UNITS Glucose (Glucose 40% Gel) 15-30 GRAMS 15 GRAMS... UD PRN PO 06/19/17 14:00 07/19/17 13:59 Glucose (Glucose Chew Tab) 4-8 Tablets 4 Tabl... UD PRN PO 06/19/17 14:00 07/19/17 13:59 Dextrose (Dextrose 50% 50ML Syringe) 25-50ML OF 50% DW IV FOR... UD PRN IV 06/19/17 14:00 07/19/17 13:59 Glucagon (Glucagon Inj) 1 mg UD PRN SQ 06/19/17 14:00 07/19/17 13:59 Insulin Detemir (Levemir Flexpen/ FlexTouch) 44 units BID SC 06/20/17 09:00 07/19/17 20:59 06/21/17 07:53 44 UNITS (Ruthann Wright, NIYA) Objective Vital Signs Date Time Temp Pulse Resp B/P (MAP) Pulse Ox O2 Delivery O2 Flow Rate FiO2 06/21/17 09:26 36.6 66 16 99 Room Air 06/21/17 08:00 Room Air 06/21/17 07:40 66 06/21/17 06:55 36.6 55 16 118/72 (87) 99 Room Air 06/20/17 23:40 Room Air 06/20/17 23:38 36.8 59 16 125/68 (87) 98 Room Air 06/20/17 16:12 36.4 58 18 131/69 (89) 99 Room Air 06/20/17 15:15 Room Air 06/20/17 12:36 37.0 70 18 146/71 (96) 93 Room Air (Ruthann Wright, PA-C) Physical Exam General Appearance: no apparent distress, + obese Eyes: normal inspection, PERRL ENT: hearing grossly normal Neck: supple Respiratory/Chest: lungs clear, no respiratory distress, no accessory muscle use Cardiovascular: regular rate, rhythm Abdomen: normal bowel sounds, non tender, soft Extremities: no pedal edema, no calf tenderness, + pertinent finding (R knee incision site C/D/I ) Neurologic/Psychiatric: alert, normal mood/affect, oriented x 3 Skin: normal color, warm/dry, no rash (Ruthann Wirght, PERLA-C) Laboratory Results Last 24 Hours Test 06/20/17 11:59 06/20/17 17:16 06/20/17 20:59 06/21/17 06:28 Bedside Glucose 262 mg/dl 204 mg/dl 167 mg/dl 117 mg/dl (Ruthann Wright, PA-C) Assessment and Plan This is a 67 yo M with PMHX of DM II, HTN, HLD, CAD s/p 2 vessel disease with VAL to the RCA and R circumflex, and a bare metal stent in another portion of the RCA in 2005, anxiety, remote tobacco use where he quit 9 months ago ( previously smoked 10 cig x 40 years), and regular alcohol use with at least 1-3 drinks daily who presented for an elective right total knee arthroplasty by Dr. Manzano on 06/19/17. s/p R TKA by Dr. Manzano on 06/19: - Surgical management, pain management, PT/OT, and DVT prophylaxis as per primary team - f/u w/ Orthopedics within 2 weeks - Instructed patient to take MiraLAX at discharge for bowel regimen T2DM w/ hyperglycemia likely secondary to IV steroids: - Hyperglycemia- RESOLVED - Continue Levemir 44 units BID as long as he is tolerating diet - BSG ACHS and ISS while inpatient - Resume NovoLog 10 u QAM/NOON and 14 u HS and Metformin 1000 mg BID at discharge HTN, h/o CAD w/ stenting, dyslipidemia: Continue Coreg, Lisinopril, Aspirin, and Plavix Anxiety, depression: Continue Zoloft GI prophylaxis: Protonix daily DVT prophylaxis: ASA 81 mg BID as per surgical team Code Status: LEVEL I, FULL Dispo: Discharge to home w/ HHS as per primary team- patient is medically stable for discharge (Ruthann Wright, NIYA) History Physician [employer] Supervision Note: The patient left before I saw him. Discussed with PERLA Wright and agree with findings and plan as documented in the note. Documented By: Sol Bardales (Sol Bardales MD)
== END 2017-06-21 11:49 | disposition home health service (06) | DRG 470 ==
LOC: C.ACU 05:05 → C.3E 07:00 → ENRESERV 09:24
PROVIDERS: ADMIT Orthopaedic Surgery; ATTEND Orthopaedic Surgery
PROC: 0SRC0J9 Replacement of Right Knee Joint with Synthetic Substitute, Cemented, Open Approach (ICD-10-PCS; principal; 2017-06-19 07:15)
DX: M17.11 Unilateral primary osteoarthritis, right knee (principal); I11.9 Hypertensive heart disease without heart failure; E11.65 Type 2 diabetes mellitus with hyperglycemia; I25.118 Atherosclerotic heart disease of native coronary artery with other forms of angina pectoris; E78.00 Pure hypercholesterolemia, unspecified; F32.9 Major depressive disorder, single episode, unspecified; F41.9 Anxiety disorder, unspecified; F10.20 Alcohol dependence, uncomplicated; E66.9 Obesity, unspecified; Z79.899 Other long term (current) drug therapy; Z79.4 Long term (current) use of insulin; Z79.82 Long term (current) use of aspirin; Z95.5 Presence of coronary angioplasty implant and graft; Z68.33 Body mass index [BMI] 33.0-33.9, adult; Z72.89 Other problems related to lifestyle; Z87.891 Personal history of nicotine dependence